=== PATIENT | female | born 1980 | race Caucasian/White ===

== ENCOUNTER → 2016-10-14 | Outpatient (CLI) | payer OTHER ==
[~2016-10-14] VITALS: Ht 162.6 cm; Wt 119.8 kg
[~2016-10-14] MED LIST: CALCIUM 500 +1 EAC5 PO; CELEXA10 MG PO; CLARITIN10 MG PO; IRON325 PO; MULTIVITAMIN; NABUMETONE 500500 M1 PO; NABUMETONE 750750 M1 PO; OXYCODONE HCL 55 MG PO; PERI-COLACE TA1 EACH PO; PRILOSEC 20 MG20 MG PO; ROXICODONE5 M2 PO; SINGULAIR 10 MG10 M1 PO; TIZANIDINE HCL 22 M1 PO; TRI-SPRINTEC1 EACH PO; URSO FORTE500 M1 PO; XANAX 0.5 MG0.5 MG PO; ZANTAC 150MG T150 MG PO
--- NOTE | ~2016-10-14 | HPC ---
[facility] [place] [address] PAIN MANAGEMENT CONSULTATION Name: NAYAN HOGAN Room #: REG ROMULO Winnie#: [id number] Admission: 10/14/16 Attend Phys: Juan Pack DO Discharge: Date of : 84 Report #: [id number] THIS REPORT FOR: //name// CC: Santana Pack The patient is a 36-year-old female. She had prior been treated for symptomatic bilateral SI joint dysfunction, right greater than left back in May. I gave her a SI joint injection back in April with good efficacy. She returns to the pain clinic today noting pain has recurred, right greater than left, but bilateral SI pain. Exacerbated with standing, walking and bending. She states she is still doing some exercises after physical therapy and actually seen physical therapy still once a week. She does remain, however, fairly obese with a BMI of 45.3 kilograms per meter squared. PHYSICAL EXAMINATION: Otherwise shows a 36-year-old female. Blood pressure is nominally elevated at 142/90, pulse 80, respirations 16. Rises from chair using armrest, slightly antalgic gait. Very tender over the SI joints, right greater than left. Grossly positive Mathew test on the right, mildly positive on left. Lower extremity strength symmetric. Straight leg raise is negative. ASSESSMENT: Lumbosacral spondylosis, sacroiliac joint dysfunction, history of lumbar radiculopathy, and morbid obesity. RECOMMENDATION: 1. Bilateral SI joint injections under fluoroscopy today. 2. Renew nabumetone 5 mg b.i.d., oxycodone 5 mg 1 tablet q. 8 hours as needed for pain, dispensed 60 tablets, no refill. Two refills on the nabumetone. Continue with core exercises and follow up as needed. PROCEDURE NOTE: Bilateral SI joint injection under fluoroscopy. PROCEDURE NOTE: After written and informed consent was obtained including risk of infection, nerve trauma, increased pain and weakness, the patient wishes to proceed. The patient was taken to the fluoroscopy suite, placed in the prone position. The sacroiliac joint was visualized using the C-arm, turned in an oblique fashion to align the joint. The skin overlying the area was cleansed with ChloraPrep. Skin wheal with Xylocaine was raised. A 22 gauge spinal needle was inserted into the inferior aspect of the joint. A low volume extension tubing was then attached to the needle after the stylet was removed. Negative aspiration was accomplished. A 1 mL of Omnipaque was injected which showed spread within the SI joint. 40 mg triamcinolone plus 2 mL of 0.5% preservative-free bupivacaine was injected into the joint. Needle was removed. Attention was then turned to the contralateral joint which was treated in an identical fashion. After both needles were removed the prep was washed off. Two Band-Aids were applied over the puncture sites. The patient was allowed to [address] [address] PAIN MANAGEMENT CONSULTATION Name: NAYAN HOGAN Room #: REG ROMULO Zhou#: [id number] Admission: 10/14/16 Attend Phys: Juan Pack DO Discharge: Date of : 84 Report #: [id number] ambulate to the recovery room, monitored for an appropriate period of time, discharged in good and stable condition. <ELECTRONICALLY SIGNED> By: Juan Pack DO 10/15/16 0905 [id number] Juan Pack DO /nt
[2016-10-14 14:33] VITALS: BP 143/90
== END | disposition home or self-care (01) ==
LOC: PAIN 07:23
DX: M53.3 Sacrococcygeal disorders, not elsewhere classified (principal); M54.16 Radiculopathy, lumbar region; M47.897 Other spondylosis, lumbosacral region; E66.01 Morbid (severe) obesity due to excess calories

== ENCOUNTER → 2016-12-17 | Outpatient (CLI) | payer OTHER ==
[~2016-12-17] VITALS: Ht 162.6 cm; Wt 122.5 kg
--- NOTE | ~2016-12-17 | HPC ---
[facility] [place] [address] PAIN MANAGEMENT CONSULTATION Name: NAYAN HOGAN Room #: REG Adeline Zhou#: [id number] Admission: 12/17/16 Attend Phys: Juan Pack DO Discharge: Date of : 84 Report #: [id number] THIS REPORT FOR: //name// CC: Santana Pack The patient is a 36-year-old female last seen in pain clinic on 10/14/2016. She has bilateral SI joint pain, lumbosacral spondylosis, she is morbidly obese with a BMI of 46.3 kilograms per meter squared. She has been treated for SI joint mediated pain, has had bilateral SI joint injections 05/07/2016, 07/08/2016 and again 10/14/2016. I referred her to Physical Therapy for core strengthening exercises and she claims to be doing these. She comes in today, she is frustrated and tearful. She notes while the interventional therapies afford some bit of relief, greater than 50%, but only lasts short time. Last injection was only up to 1 week. She notes pain is 5/10, exacerbated with bending and working. She is an RN, does a fair bit of physical activity. Currently, she is using oxycodone rarely, nabumetone 500 mg b.i.d. She does have some gastroesophageal reflux and does take Prilosec along with this. She was seen today for prolonged visit from 12:57-13:25, greater than 50% of this visit was spent counseling the patient about therapeutic options. PHYSICAL EXAMINATION: Shows 36-year-old female, BMI is 46.3 kilograms per meter squared. Blood pressure 135/69, pulse 90, respirations 15. She is alert and oriented to person, place, and time, judged to be a reasonable historian. Again, a little tearful and frustrated today. Morbidly obese, rises from chair using armrest. Gait is tandem, though a little tentative, tender across the SI area. Mathew test is positive. Lower extremity strength is preserved. DIAGNOSTIC STUDIES: MRI from 03/2016 notes some disk desiccation at L5-S1, though this does not correlate with specific lumbar radicular symptoms. ASSESSMENT: Bilateral sacroiliac joint dysfunction, lumbosacral spondylosis in a patient with morbid obesity. She has had good transient relief with sacroiliac joint injections, but ongoing pain that interferes with function despite conservative therapy including physical therapy and nonsteroidal anti-inflammatory medications. RECOMMENDATIONS: 1. After a long discussion with the patient today, we elected to refer the patient to Dr. Quirino Coronel at [facility] for consideration for interventional therapy to include fusion of the right SI that is the most problematic side (iFuse). Today, we elected to add tizanidine 2 mg 1 tablet up to 3 times a day with 1-2 at bedtime for spasm and pain. Continue Relafen 5 mg b.i.d. I did ultimately renew low dose oxycodone 5 mg, dispense 45 tablets, 1 tablet q. 4-6 hours as needed for exquisite pain, not to be used on a daily basis. [address] [address] PAIN MANAGEMENT CONSULTATION Name: NAYAN HOGAN Room #: REG ROMULO Zhou#: [id number] Admission: 12/17/16 Attend Phys: Juan Pack DO Discharge: Date of : 84 Report #: [id number] 2. We will seek authorization for right L5, S1, S2 medial branch dorsal rami diagnostic block without steroid as this will be a good diagnostic test predicted for primarily SI mediated pain. The patient discharged in good and stable condition after prolonged visit, greater than 50% of the time spent counseling the patient. Again, referral was made to [facility], Dr. Quirino Coronel for consideration for iFuse. We will seek authorization for right L5, S1, S2 medial branch dorsal rami diagnostic block. <ELECTRONICALLY SIGNED> By: Juan Pack DO 12/20/16 1130 1030 1105 Juan Pack DO /nt
[2016-12-17 12:53] VITALS: BP 135/69
== END | disposition home or self-care (01) ==
LOC: PAIN 07:03
DX: M53.3 Sacrococcygeal disorders, not elsewhere classified (principal); M47.897 Other spondylosis, lumbosacral region; E66.01 Morbid (severe) obesity due to excess calories; Z68.42 Body mass index [BMI] 45.0-49.9, adult; Z98.890 Other specified postprocedural states